=== PATIENT | male | born 1995 | race Caucasian/White ===

== ENCOUNTER 2021-01-07 19:45 | Emergency (ER) | payer MEDICAID, SELFPAY ==
[2021-01-07 19:47] VITALS: BP 152/85; PULSE 68; RESP 18; TEMP 37; O2SAT 99; BMI 30.7
--- NOTE | 2021-01-07 21:41 | ED_ITS ---
HPI - Dental/Oral General Chief complaint: Dental/Oral Stated complaint: Dental abscess Source: patient Mode of arrival: ambulatory Limitations: no limitations History of Present Illness HPI Narrative: 25-year-old male presents with dental pain and abscess. He was unable to obtain an appointment with a dentist. He does not describe any fevers, chills, chest pain or pressure, palpitations, shortness breath, abdom inal pain, abdominal distention, difficulty swallowing, difficulty managing secretions, or any other concerning symptoms. MD Complaint: tooth pain Teeth map: 1. Onset (ago): day(s) (2) Duration: constant Severity: moderate Severity scale (1-10): 7 Relieving factors: nothing Exacerbating factors: chewing, cold, heat and drinking fluids Context: history of dental caries and poor dental care Associated symptoms: gum swelling Treatment prior to arrival: topical analgesic and oral analgesic Related Data Previous Rx's Medication Instructions Recorded amoxicillin-pot clavulanate 1 tab PO Q12H 10 Days #20 tab 01/07/21 [Augmentin] ibuprofen 600 mg PO Q6H PRN #60 tab 01/07/21 Allergies Allergy/AdvReac Type Severity Reaction Status Date / Time sulfamethoxazole Allergy Unknown RASH Unverified 06/10/20 16:13 [From BACTRIM] trimethoprim [From BACTRIM] Allergy Unknown RASH Unverified 06/10/20 16:13 Review of Systems Review of Systems: Constitutional: No Fever, No Chills ENT/Mouth: No swallowing difficulty, no change in voice, positive dental pain, positive jaw pain, no facial swelling Eyes: No Eye Pain, No Swelling Cardiovascular: No Chest Pain, No SOB Respiratory: No Cough, No Sputum, No Wheezing, No Smoke Exposure, No Dyspnea Gastrointestinal: No Nausea, No Vomiting, No Diarrhea Genitourinary: No Dysuria Musculoskeletal: No Myalgias Skin: No rash Neuro: No Weakness, No Numbness, No Headache Yes all other systems are reviewed and are negative PMFSH Past Medical History Attestation statement: The following information was validated with the patient. Source: old records reviewed Medical History No acute medical problems Surgical History No history of previous surgery Social History Social History Alcohol intake: never Smoking Status: Current every day smoker Use of substances other than those prescribed or required for medical reasons: No Advance Directives: No Advance Directives Information Provided: Yes Physical Exam Vital Signs: Vital Signs: Last Vital Signs Temp 98.3 F 01/07/21 22:45 Pulse 88 01/07/21 22:45 Resp 18 01/07/21 22:45 BP 153/92 H 01/07/21 22:45 Pulse Ox 100 01/07/21 22:45 Body Mass Index 30.7 Appearance: Alert. Oriented X3. No acute distress. Eyes: Pupils equal, round and reactive to light. ENT: Pharynx normal. 3 cm area of swelling to the left side of the hard palate, soft tender to palpation. Neck: Normal inspection. Neck supple. CVS: Normal heart rate and rhythm. Pulses normal. Respiratory: No respiratory distress. Breath sounds normal. Abdomen: Soft and nontender. Skin: Skin warm and dry. Normal skin color. Normal skin turgor. Extremities: No lower extremity edema. Neuro: No motor deficit. No sensory deficit. Course Course Course Narrative: 25-year-old male presents with a dental abscess, soft palpable area to the left side of the hard palate. Plan of care is for I and D, detailed description of procedure and patient agrees to plan. Patient tolerated procedure well, approximately 10 mL of purulent drainage expressed from the site. Will give p.o. Augmentin for 10 days. Is recommended the patient follow-up with dentist, he was given a list of phone numbers for dental providers. Patient verbalized understanding of and agrees plan of care d ischarge home. Procedures Abscess I/D Site: other (Dental) Side (if applicable): right Local Anesthetic: lidocaine 2% Amount of anesthesia used (mL): 2 Technique: incised with blade Amount of fluid expressed (mL): 10 Sent for culture/gram staining?: Yes Irrigation: No Packing used?: none MDM - Dental/Oral Differential Diagnosis Differential diagnosis: Likely dental caries, toothache and dental abscess Medical Records Attestation: I reviewed the patient's medical records. Lab Data Attestation: I reviewed the patient's lab results. Discharge Plan Discharge Clinical Impression: Dental caries, Dental abscess, Encounter for incision and drainage procedure Patient Disposition: Home, Self-Care Instructions: Dental Abscess (ED), Abscess Incision and Drainage (DC) Additional Instructions: You were evaluated for a dental abscess. We did drain this abscess, we made an incision and drained approximately 10 mL of purulent fluid. Please take Augmentin twice a day as directed. Do not skip doses. Please take Motrin and or Tylenol as needed for pain management. Follow-up with a dentist. Thank you for choosing this emergency department for evaluation. Please follow-up with primary care physician as needed. Return to the emergency department for any new, concerning, or worsening symptoms. Prescriptions: New amoxicillin-pot clavulanate [Augmentin] 875-125 mg tablet 1 tab PO Q12H 10 Days Qty: 20 RF: 0 ibuprofen 600 mg tablet 600 mg PO Q6H PRN (Reason: pain) Qty: 60 RF: 0
[2021-01-07] MEDS: Lidocaine HCl 2 % MPF 5 ML VIAL SUBCUT (22:35)
[2021-01-07] MEDS: Amoxicillin/Potassium Clav 875 MG TABLET PO (22:36)
[2021-01-07] MEDS: Diphth,Pertus(ACell),Tet Adult 0.5 ML SYRINGE IM (22:36)
[2021-01-07 22:45] VITALS: BP 153/92; PULSE 88; RESP 18; TEMP 36.8; O2SAT 100
== END 2021-01-08 08:56 | disposition home or self-care (01) ==
PROVIDERS: Emergency Provider Internal Medicine
DX: K04.7 Periapical abscess without sinus (principal); K08.89 Other specified disorders of teeth and supporting structures; F17.200 Nicotine dependence, unspecified, uncomplicated
CPT/HCPCS: 41800; 87071; 87205; 90471; 90715; 99284